=== PATIENT | male | born 1985 | race Caucasian/White ===

== ENCOUNTER 2021-03-27 08:40 | Emergency (ER) | payer SELFPAY ==
[2021-03-27 08:46] VITALS: BP 148/119; PULSE 84; RESP 20; TEMP 37.1; O2SAT 100
--- NOTE | 2021-03-27 09:16 | ED.GENADULT ---
HPI - General Adult General Stated complaint: ear noise and dizzy Source: patient Mode of arrival: ambulatory Limitations: no limitations History of Present Illness HPI narrative: 35 y/o male. PMHx: Microtia Ear reconstruction RT. Presents to [facility] today with acute complaints of LT side otalgia and noise sensitivity. Pt reports to feel as though his ear is 'full', and has had increased pain, more bothersome in loud noise or cold wind. He denies auditory loss or trauma. No fever, congestion. RT side unaffected. He is without additional acute c/o illness upon PE. Related Data Allergies Allergy/AdvReac Type Severity Reaction Status Date / Time cephalexin Allergy Unknown Rash Verified 03/27/21 09:17 Review of Systems Review of Systems: CONSTITUTIONAL: Denies fever, chills, sweats. EYES: Denies visual changes, redness, discharge. ENT: Denies rhinorrhea, congestion, sore throat. Positive LT otalgia. CARDIOVASCULAR: Denies chest pain, palpitations, edema. RESPIRATORY: Denies dyspnea, wheezing, cough GASTROINTESTINAL: Denies abdominal pain, nausea, vomiting, diarrhea. GENITOURINARY: Denies dysuria, hematuria, abnormal discharge SKIN: Denies rash or itching. MUSCULOSKELETAL: Denies acute back pain, joint pain, or myalgia. NEUROLOGIC: Denies numbness, or focal weakness. PSYCHIATRIC: Denies anxiety or depression. All systems reviewed & are unremarkable except as noted in HPI and below Exam Narrative: GENERAL: This is a well-nourished, well-developed adult, in no apparent distress. HEAD: normocephalic, atraumatic. EYES: PERRL. Sclera clear/white. EARS: External ears normal. RT auditory canal is erythematous with bulging TM. Positive tragus maneuver RT. LT normal. No gross auditory deficits. NOSE: External nose normal. No Rhinorrhea, no obstruction, nares patent. THROAT: Mucous membranes moist, posterior pharynx clear. No exudates. NECK: Neck supple, non-tender without lymphadenopathy, masses or thyromegaly. CARDIOVASCULAR: Regular rate and rhythm without murmurs, gallops, or rubs. RESPIRATORY: Clear to auscultation. Breath sounds equal bilaterally. No wheezes, rales, or rhonchi. GASTROINTESTINAL: Abdomen soft, non-tender, nondistended. Bowel sounds are active. No guarding. SKIN: warm, intact with no suspicious lesions or rash, good texture and turgor. NEURO: Alert, active, and age appropriate. No focal neurologic deficits. Course Vital Signs Vital signs: Vital Signs Temperature 37.1 C 03/27/21 08:46 Pulse Rate 84 03/27/21 08:46 Respiratory Rate 20 03/27/21 08:46 Blood Pressure 148/119 H 03/27/21 08:46 Pulse Oximetry 100 03/27/21 08:46 Temperature 37.1 C 03/27/21 08:46 Pulse Rate 84 03/27/21 08:46 Respiratory Rate 20 03/27/21 08:46 Blood Pressure 148/119 H 03/27/21 08:46 Pulse Oximetry 100 03/27/21 08:46 The patient has been informed that they may have pre-hypertension or Hypertension based on a BP reading in the clinic. It is recommended that the patient call the primary care provider listed on their discharge instructions or a physician of their choice as soon as possible (within 1-2week) to arrange follow up for further evaluation of possible pre-hypertension or hypertension. Medical Decision Making Differential Diagnosis Differential Diagnosis: Differential Diagnosis: Consideration of the following conditions may be warranted for the presenting problem, they are not final diagnoses: Otitis media, otitis externa, perforated TM, foreign body or cerumen impaction, dental or intraoral infection, TMJ dysfunction, or other. Vital Signs Vital Signs: Vital Signs Temperature 37.1 C 03/27/21 08:46 Pulse Rate 84 03/27/21 08:46 Respiratory Rate 20 03/27/21 08:46 Blood Pressure 148/119 H 03/27/21 08:46 Pulse Oximetry 100 03/27/21 08:46 Temperature 37.1 C 03/27/21 08:46 Pulse Rate 84 03/27/21 08:46 Respiratory Rate 20 03/27/21 08:46 Blood
== END 2021-03-27 09:40 | disposition home or self-care (01) ==
PROVIDERS: Emergency Provider Nurse Practitioner Adult Health
DX: H66.90 Otitis media, unspecified, unspecified ear (principal)
CPT/HCPCS: 99203; G0463

== ENCOUNTER 2023-12-06 08:22 | Emergency (ER) | payer SELFPAY ==
--- NOTE | ~2023-12-06 | XR_ITS ---
XR chest 2V Ordering provider: Gretchen Rodriguez APRN History: 38 years Male with . cough,congestion, wheezing. Smoker 20 years . Comparison: None. FINDINGS: MEDIASTINUM: The cardiac silhouette is not enlarged. LUNGS: No infiltrates, effusions or pneumothorax. OTHER: No free air under the diaphragm. IMPRESSION: No acute cardiopulmonary pathology. Reviewed, dictated and finalized at location A.
[2023-12-06 08:26] VITALS: BP 147/84; PULSE 93; RESP 16; TEMP 37.3; O2SAT 99
--- NOTE | 2023-12-06 08:40 | ED.URI ---
HPI - URI/Sore Throat General Chief Complaint: Upper Respiratory Infection Stated Complaint: Trouble Breathing Time Seen by Provider: 12/06/23 08:40 Source: patient, RN notes reviewed and old records reviewed Mode of arrival: ambulatory Limitations: no limitations History of Present Illness HPI Narrative: 38 male to the [facility] with complaints shortness of breath, cough that started yesterday. Denies any chest pain. Denies any medical history states that he has not seen a doctor in many years. Patient is a smoker, 1 pack a day since age 15 or 16 Onset (ago): day(s) (1) Treatments prior to arrival: none Related Data Allergies Allergy/AdvReac Type Severity Reaction Status Date / Time cephalexin Allergy Unknown Rash Verified 12/06/23 08:33 Review of Systems Review of Systems: All systems reviewed & are unremarkable except as noted in HPI and below Constitutional: Constitutional: Reports no additional constitutional complaints Eyes: Eyes: Reports no additional eye complaints ENT: Reports as per HPI Cardiovascular: Cardiovascular: Reports no additional cardiovascular complaints, Denies chest pain and Denies dyspnea Respiratory: Respiratory: Reports as per HPI, Reports chest congestion, Reports cough and Reports dyspnea Gastrointestinal: Gastrointestinal: Reports no additional gastrointestinal complaints, Denies abdominal pain, Denies nausea and Denies vomiting Musculoskeletal: Musculoskeletal: Reports no additional musculoskeletal complaints Integumentary/Breasts: Skin/Breast: Reports system reviewed and no additional complaints, except as docu Neurologic: Reports system reviewed and no additional complaints, except as documented Psychiatric: Psychiatric: Reports no additional psychiatric complaints Allergic/Immunologic: Allergic/Immunologic: Reports no additional allergic/immunologic complaints PMFSH Social History Social History Smoking packs per day: 1 Smoking cigarettes per day: 20.0 Years smoked: 23 Smoking pack-years: 23.00 Smoking status: Current every day smoker Tobacco type: cigarettes Gender identity (if verbalized by the patient): Male Comments At the time of my signature, I reviewed and agree with the nursing past medical, surgical, social, and family history. There is no relevant family history pertinent to the patient complaint. Exam Const: General: cooperative, healthy appearing, no acute distress, well developed, alert, uncomfortable and well nourished Nutritional Appearance: well nourished Orientation/consciousness: patient oriented x3 Limitations: no limitations HENMT: Head: normal to inspection Ears: hearing grossly normal bilaterally, external ears normal, TM's normal bilaterally, EAC's normal, mastoids normal and no periauricular adenopathy Face/Nose/Sinus: Normal external nose present, Normal nares present, Normal nasal mucous membranes and turbinates present, normal facial exam and face symmetric Face and sinus: normal facial exam and face symmetric Throat: uvula midline, abnormal tonsil bilateral erythema; no exudates and no hypertrophy and no uvular edema Eyes: General: appearance normal, both eyes and all related structures Alignment and Position: alignment normal Periorbital: periorbital findings normal Pupils: Equal, round and reactive pupils present EOM: EOMs intact bilaterally Neck: Neck: normal visual inspection, full ROM, no lymphadenopathy and no meningeal signs Chest: Chest palpation & inspection: normal inspection of the chest Resp: Effort & Inspection: normal respiratory effort and able to speak in complete sentences Auscultation: crackles bilateral throughout, no rales, no rhonchi and wheezes expiratory wheezes, inspiratory wheezes and throughout Cardio: Rate: regular rate Rhythm: regular rhythm Skin: General skin exam: normal color and no rashes or lesions noted Lesions: no lesions Rashes: no rash
[2023-12-06] MEDS: IPRATROPIUM 0.5 MG/ALBUTEROL SULFATE 2.5 MG AMPUL.NEB 3 ML INHALATION (08:58)
[2023-12-06 09:06] LABS: EDINFLUASCREEN Negative; EDINFLUBSCREEN Negative; EDSTREPNEGPOS1 Presumptive Negative
== END 2023-12-06 09:28 | disposition home or self-care (01) ==
PROVIDERS: Emergency Provider Nurse Practitioner
DX: J40 Bronchitis, not specified as acute or chronic (principal); Z20.822 Contact with and (suspected) exposure to COVID-19; F17.210 Nicotine dependence, cigarettes, uncomplicated
CPT/HCPCS: 71046; 87081; 87426; 87804; 87880; 99203; G0463

== ENCOUNTER 2025-01-10 13:18 | Emergency (ER) | payer OTHER, SELFPAY ==
--- NOTE | ~2025-01-10 | XR_ITS ---
X-rays left knee Indication: Left knee pain Comparison: None Technique: 5 views left knee Findings/Impression: Unremarkable- 1. No fracture, dislocation, effusion, degenerative changes, or other abnormality identified. Reviewed, dictated and finalized at location R.
[2025-01-10 13:24] VITALS: BP 141/104; PULSE 98; RESP 20; TEMP 37.1; O2SAT 99
--- NOTE | 2025-01-10 13:58 | ED.GENADULT ---
HPI - General Adult General Chief complaint: Extremity Injury, Lower Stated complaint: left knee injury Source: patient Mode of arrival: ambulatory Limitations: no limitations History of Present Illness HPI narrative: Patient presents for evaluation of left knee pain. Symptom onset last night. He was walking up steps and his sandal got caught on a piece of wood. He twisted his left knee in the process. He now has swelling and pain in the affected joint. He describes the pain as pressure and states it is severe, without numerical rating. Movement makes his symptoms worse. He took 800mg ibuprofen with some improvement thereafter. He had a mensicus injury in that knee in the past. Related Data Home Medications ?Medication ?Instructions ?Recorded ?Confirmed ?Last Taken ?Type escitalopram oxalate 10 mg tablet mg 01/10/25 Unknown History Allergies Allergy/AdvReac Type Severity Reaction Status Date / Time cephalexin Allergy Unknown Rash Verified 01/10/25 13:28 Review of Systems Review of Systems: CONSTITUTIONAL: Denies fever, chills, or sweats. EYES: Denies visual changes, redness, or discharge. ENT: Denies rhinorrhea, congestion, sore throat, or otalgia. CARDIOVASCULAR: Denies chest pain, palpitations, or edema. RESPIRATORY: Denies cough or dyspnea. GASTROINTESTINAL: Denies abdominal pain, nausea, vomiting, or diarrhea. GENITOURINARY: Denies dysuria or hematuria. SKIN: Denies rash or itching. MUSCULOSKELETAL: Reports left knee pain and swelling NEUROLOGIC: Denies headache, numbness, dizziness, or weakness. PSYCHIATRIC: Denies anxiety or depression. COUNTS INCLUDE 234 BEDS AT THE [facility] Past Medical History Medical History Insomnia Anxiety Surgical History Surgical History H/O knee surgery Family History Family History Mother Family history non-contributory Social History Social History Smoking packs per day: 1 Smoking cigarettes per day: 20.0 Years smoked: 23 Smoking pack-years: 23.00 Smoking status: Current every day smoker Tobacco type: cigarettes Gender identity (if verbalized by the patient): Male Exam Narrative: GENERAL: Well-appearing, well-nourished, and in no acute distress. HEAD: Normocephalic, atraumatic. EYES: PERRLA and EOMI. ENT: Nares clear, no rhinorrhea or epistaxis. Mucous membranes moist. Oropharynx without tonsillar hypertrophy exudate or other lesions. Bilateral TMs pearly singletary nonbulging NECK: Supple. No adenopathy or masses. No carotid bruits or JVD CHEST: Clear to auscultation. No respiratory distress. No wheezes rales or rhonchi HEART: Regular rate and rhythm. No murmur heard. Normal peripheral pulses. ABDOMEN: Soft, nontender, nondistended, normal active bowel sounds. EXTREMITIES: full range of motion left knee But patient exhibits hesitancy with flexion and extension secondary to pain. There is positive crepitus. there is swelling present. There is no tenderness present SKIN: Warm, dry, no rash. NEURO: No focal deficits. Alert and oriented x3. PSYCH: Normal mood and affect. Course Course Emergency Course: This is a 39 year old male who presented for evaluation of left knee pain. X-ray negative for fracture. Provided with Brendon wrap. Was given a prescription for a hinged knee brace. He should follow-up with orthopedics. Recommend ibuprofen for pain and advised on RICE therapy. Follow up with primary provider. Go to the ER for worsening symptoms. Pt in agreement with plan of care. Level of Care: Express Care Visit Vital Signs Vital signs: Vital Signs Temperature 37.1 C 01/10/25 13:24 Pulse Rate 98 01/10/25 13:24 Respiratory Rate 01/10/25 13:24 Blood Pressure 141/104 H 01/10/25 13:24 Pulse Oximetry 99 01/10/25 13:24 Oxygen Delivery Face Tent 01/10/25 13:24 Temperature 37.1 C 01/10/25 13:24 Pulse Rate 98 01/10/25 13:24 Respiratory Rate 01/10/25 13:24 Blood Pressure 141/104 H 01/10/25 13:24 Pulse Oximetry 99 01/10/25 13:24 Oxygen Delivery Face Tent 01/10/25 13:24 Medical Decision Making Vital Signs Vital Signs: Vital Signs Temperature 37.1 C 01/10/25 13:24 Pulse Rate 98 01/10/25 13:24 Respiratory Rate 20 01/10/25 13:24 Blood Pressure 141/104 H 01/10/25 13:24 Pulse Oximetry 99 01/10/25 13:24 Oxygen Delivery Face Tent 01/10/25 13:24 Temperature 37.1 C 01/10/25 13:24 Pulse Rate 98 01/10/25 13:24 Respiratory Rate 20 01/10/25 13:24 Blood Pressure 141/104 H 01/10/25 13:24 Pulse Oximetry 99 01/10/25 13:24 Oxygen Delivery Face Tent 01/10/25 13:24 Imaging Data Radiologist's impression: X-rays left knee Indication: Left knee pain Comparison: None Technique: 5 views left knee Findings/Impression: Unremarkable- 1. No fracture, dislocation, effusion, degenerative changes, or other abnormality identified. Discharge Plan Discharge Clinical Impression: Strain of left knee Qualifiers: Encounter type: initial encounter Qualified Code(s): S86.912A - Strain of unspecified muscle(s) and tendon(s) at lower leg level, left leg, initial encounter Patient Disposition: Home Condition: Stable Instructions: Antibiotic Form, Muscle Strain (DC) Additional Instructions: APPLY ICE NEEDED FOR PAIN AND SWELLING ELEVATE YOUR LEFT LEG WHEN NOT AMBULATING IBUPROFEN SHOULD HELP WITH PAIN AND SWELLING PLEASE PURCHASE A HINGE KNEE BRACE FROM A MEDICAL SUPPLY STORE AND WEAR IT-YOU HAVE A PRESCRIPTION FOR ONE FROM TODAY'S VISIT PLEASE FOLLOW UP WITH ORTHOPEDICS THIS WEEK Patient Language: [place] Prescriptions: No Action escitalopram oxalate 10 mg tablet Follow-up/Referrals: Avina,Jessica Fong APRN [Primary Care Provider, Unknown] Man Seymour MD [Physician, Orthopedics] Stand Alone Forms: Work/School Release IP Time of Disposition: 13:55
== END 2025-01-10 14:03 | disposition home or self-care (01) ==
PROVIDERS: Emergency Provider Nurse Practitioner; PCP Nurse Practitioner Family
DX: S86.912A Strain of unspecified muscle(s) and tendon(s) at lower leg level, left leg, initial encounter (principal); X50.1XXA Overexertion from prolonged static or awkward postures, initial encounter; F41.9 Anxiety disorder, unspecified; F17.210 Nicotine dependence, cigarettes, uncomplicated
CPT/HCPCS: 73564; 99213; G0463